=== PATIENT | male | born 1985 | race African-American/Black ===

== ENCOUNTER 2019-04-27 10:26 | Emergency (ER) | payer BC ==
--- NOTE | 2019-04-27 10:49 | EDM.PDOC ---
ED HPI GENERAL MEDICAL PROBLEM - General Chief Complaint: Respiratory Problem Stated Complaint: CHESTPAIN/COUGH Time Seen by Provider: 04/27/19 10:48 Source of Information: Reports: Patient History Limitations: Reports: No Limitations - History of Present Illness INITIAL COMMENTS - FREE TEXT/NARRATIVE: HISTORY AND PHYSICAL: History of present illness: Patient is a 34-year-old male presents to the ED with complaint of cough. Patient states he has had a cough for the past 2 weeks. He states he gets a pain in his chest with coughing a shortness of breath with exertion. He reports history of bronchitis. He denies fevers, chills, nausea, vomiting, abdominal pain. he is taking nyquil and vicks OTC for his symptoms without relief. Review of systems: As per history of present illness and below otherwise all systems reviewed and negative. Past medical history: As per history of present illness and as reviewed below otherwise noncontributory. Surgical history: As per history of present illness and as reviewed below otherwise noncontributory. Social history: No reported history of drug or alcohol abuse. Family history: As per history of present illness and as reviewed below otherwise noncontributory. Physical exam: General: Patient sitting comfortably in no acute distress and nontoxic appearing HEENT: Atraumatic, normocephalic, pupils reactive, negative for conjunctival pallor or scleral icterus, mucous membranes moist, throat clear, neck supple, nontender, trachea midline. No meningeal signs. Lungs: Clear to auscultation, breath sounds equal bilaterally, chest nontender. Heart: S1S2, regular, negative for clicks, rubs, or overt murmur. Abdomen: Soft, nondistended, nontender. Negative for masses or hepatosplenomegaly. Negative for costovertebral tenderness. No rigidity, rebound , guarding. Pelvis: Stable nontender. Genitourinary: Deferred. Rectal: Deferred. Extremities: Atraumatic, negative for cords or calf pain. Neurovascular unremarkable. Neuro: Awake, alert, oriented. Cranial nerves II through XII unremarkable. Cerebellum unremarkable. Motor and sensory unremarkable throughout. Exam nonfocal. Notes: Diagnostics: none Therapeutics: none Prescriptions: Azithromycin Ventolin inhaler Impression: Acute bronchitis Plan: Take medications as instructed Follow-up with primary care provider, call the number provided to schedule appointment Return to ED as needed as discussed Definitive disposition and diagnosis as appropriate pending reevaluation and review of above. chest Pain Score (Numeric/FACES): 3 - Related Data Allergies Allergy/AdvReac Type Severity Reaction Status Date / Time No Known Allergies Allergy Verified 04/27/19 10:42 Home Meds: Home Meds Albuterol [Ventolin HFA] 1 puff INH Q4H #1 inhaler 04/27/19 [Rx] Azithromycin [Zithromax] 250 mg PO ASDIRECTED #1 dosepk 04/27/19 [Rx] Past Medical History - Infectious Disease History Infectious Disease History: Reports: None - Past Surgical History HEENT Surgical History: Reports: Tonsillectomy Male Surgical History: Reports: Circumcision Social & Family History - Family History Family Medical History: Noncontributory - Tobacco Use Smoking Status *Q: Current Every Day Smoker Years of Tobacco use: 20 Packs/Tins Daily: 0.5 - Recreational Drug Use Recreational Drug Use: Yes Drug Use in Last 12 Months: Yes Recreational Drug Type: Reports: Marijuana/Hashish Recreational Drug Use Frequency: Monthly ED ROS GENERAL - Review of Systems Review Of Systems: Comprehensive ROS is negative, except as noted in HPI. ED EXAM, GENERAL - Physical Exam Exam: See Below (see dictation) Course - Vital Signs Last Recorded V/S: Last Vital Signs Temp 98 F 04/27/19 10:40 Pulse 84 04/27/19 10:40 Resp 20 04/27/19 10:40 BP 162/100 H 04/27/19 10:40 Pulse Ox 94 L 04/27/19 10:40 Departure - Departure Time of Disposition: 10:55 Disposition: Home, Self-Care 01 Condition: Good Clinical Impression: Acute bronchitis - Discharge Information Prescriptions: Albuterol [Ventolin HFA] 1 puff INH Q4H #1 inhaler Azithromycin [Zithromax] 250 mg PO ASDIRECTED #1 dosepk Instructions: Acute Bronchitis, Adult, [id number] Referrals: PCP,None [Primary Care Provider] - Forms: ED Department Discharge Additional Instructions: The following information is given to patients seen in the emergency department who are being discharged to home. This information is to outline your options for follow-up care. We provide all patients seen in our emergency department with a follow-up referral. The need for follow-up, as well as the timing and circumstances, are variable depending upon the specifics of your emergency department visit. If you don't have a primary care physician on staff, we will provide you with a referral. We always advise you to contact your personal physician following an emergency department visit to inform them of the circumstance of the visit and for follow-up with them and/or the need for any referrals to a consulting specialist. The emergency department will also refer you to a specialist when appropriate. This referral assures that you have the opportunity for follow-up care with a specialist. All of these measure are taken in an effort to provide you with optimal care, which includes your follow-up. Under all circumstances we always encourage you to contact your private physician who remains a resource for coordinating your care. When calling for follow-up care, please make the office aware that this follow-up is from your recent emergency room visit. If for any reason you are refused follow-up, please contact the [facility] Emergency Department at and asked to speak to the emergency department charge nurse. [facility] [address] [place] [address] [place] [address] Take medications as instructed Follow-up with primary care provider, call the number provided to schedule appointment Return to ED as needed as discussed Sepsis Event Note - Evaluation Sepsis Screening Result: No Definite Risk - Focused Exam Vital Signs: Vital Signs Temp Pulse Resp BP Pulse Ox 04/27/19 10:40 98 F 84 20 162/100 H 94 L Date Exam was Performed: 04/27/19 Time Exam was Performed: 12:29
== END 2019-04-27 11:04 | disposition home or self-care (01) ==
LOC: MW.ED 10:26
DX: J20.9 Acute bronchitis, unspecified (principal); F17.210 Nicotine dependence, cigarettes, uncomplicated
CPT/HCPCS: 99283; 99284

== ENCOUNTER 2019-06-17 09:19 | Emergency (ER) | payer BC, OTHER ==
--- NOTE | 2019-06-17 10:32 | CR ---
Chest: 2 views of the chest were obtained. Comparison: No prior chest imaging is available. Heart size and mediastinum are normal. Lungs are clear with no acute parenchymal change. Bony structures show nothing acute. Impression: 1. Nothing acute is appreciated on 2 view chest x-ray. Diagnostic code #1 Study was dictated in MDT
--- NOTE | 2019-06-17 11:10 | EDM.PDOC ---
ED HPI GENERAL MEDICAL PROBLEM - General Chief Complaint: Respiratory Problem Stated Complaint: COUGHING/SOB Time Seen by Provider: 06/17/19 09:19 - History of Present Illness INITIAL COMMENTS - FREE TEXT/NARRATIVE: HPI 34-year-old obese male with HTN and bronchitis (PRN albuterol) presents for evaluation of ~4 days of cough, a subjective myalgias, and one day of mild shortness breath. No diarrhea. Patient is concerned he has COVID-19. No history of DVT, PE, exogenous estrogen use, hemoptysis, immobilization, surgery, trauma , or calf tenderness or swelling. M/S/F/SocHx notable for: please see HPI; remainder reviewed with patient and in chart. ROS: Negative constitutional, eye, cardiovascular, pulmonary, GI, , MSK, skin , neurologic, psychiatric, endocrine unless noted in the HPI. Exam Gen: Pleasant, non-toxic appearing, resting comfortably. HEENT: NC, AT, PEERL, EOMI. Resp: Clear to auscultation bilaterally, normal work of breathing, no accessory muscle usage. Card: Regular rate and rhythm with no murmurs, rubs, or gallops, extremities warm and well perfused. GI: Non-tender to palpation throughout all quadrants, no focal tenderness at McBurney's point, negative Millan's sign, non-distended, no rebound or guarding. : deferred. Vascular: both calves of equal size and nontender to palpation. MSK: No visible deformities, strength and tone without visually appreciable deficit. Skin: Normal color with no visible lesions. Neuro: alert and oriented 3, no facial asymmetry, vision and hearing WNL. Psych: Mood and affect appropriate. Labs / Imaging: CXR: nothing acute is appreciated on 2 view chest x-ray. influenza A & B negative. COVID-19 pending. MDM Previous chart, nursing note, labs, imaging, and vitals reviewed. A: 34-year-old obese male with HTN and bronchitis (PRN albuterol) presents for evaluation of ~4 days of cough, a subjective myalgias, and one day of mild shortness breath. DDx & Evaluation: patient clinically appears to have a viral upper respiratory tract infection, vital signs on the patient monitor that I observed during my HPI were within normal limits, patient a normal work of breathing, clear chest x -ray, and a stable clinical trajectory that is without concerning features for foreseeable complications. Patient was advised of the tenuous knowledge regarding COVID-19 and the possibility of a worsening clinical trajectory in the coming days. No features suggestive of sepsis pathophysiology at the present time. No risk factors with respect to PE, as such further evaluation is not presently indicated. No features suggestive of cardiac etiology observed on history or exam, as such further investigation is not presently indicated. Impression: cough, shortness of breath. - Related Data Allergies Allergy/AdvReac Type Severity Reaction Status Date / Time No Known Allergies Allergy Verified 06/17/19 09:27 Home Meds: Home Meds . [No Known Home Meds] 06/17/19 [History] Past Medical History HEENT History: Reports: None Cardiovascular History: Reports: High Cholesterol, Hypertension Respiratory History: Reports: None Gastrointestinal History: Reports: None Genitourinary History: Reports: None Musculoskeletal History: Reports: None Neurological History: Reports: None Psychiatric History: Reports: None Endocrine/Metabolic History: Reports: None Hematologic History: Reports: None Immunologic History: Reports: None Oncologic (Cancer) History: Reports: None Dermatologic History: Reports: None - Infectious Disease History Infectious Disease History: Reports: None - Past Surgical History Head Surgeries/Procedures: Reports: None HEENT Surgical History: Reports: Tonsillectomy Cardiovascular Surgical History: Reports: None Respiratory Surgical History: Reports: None GI Surgical History: Reports: None Male Surgical History: Reports: Circumcision Endocrine Surgical History: Reports: None Neurological Surgical History: Reports: None Musculoskeletal Surgical History: Reports: None Oncologic Surgical History: Reports: None Dermatological Surgical History: Reports: None Social & Family History - Family History Family Medical History: Noncontributory - Tobacco Use Smoking Status *Q: Current Every Day Smoker Years of Tobacco use: 11 Packs/Tins Daily: 1 - Caffeine Use Caffeine Use: Reports: None - Recreational Drug Use Recreational Drug Use: Yes Recreational Drug Type: Reports: Marijuana/Hashish Recreational Drug Use Frequency: Rarely ED ROS GENERAL - Review of Systems Review Of Systems: See Below ED EXAM, GENERAL - Physical Exam Exam: See Below Course - Vital Signs Last Recorded V/S: Last Vital Signs Temp 36.4 C 06/17/19 09:34 Pulse 85 06/17/19 09:34 Resp 18 06/17/19 09:34 BP 161/90 H 06/17/19 09:34 Pulse Ox 98 06/17/19 09:34 - Orders/Labs/Meds Orders: Active Orders 24 hr Category Date Time Status Communication Order [RC] STAT Care 06/17/19 11:06 Ordered CORONAVIRUS COVID-19 PCR PHL [MREF] Stat Lab 06/17/19 09:48 Ordered Isolation [COMM] Routine Oth 06/17/19 09:48 Ordered Departure - Departure Time of Disposition: 11:09 Disposition: Home, Self-Care 01 Clinical Impression: Upper respiratory tract infection - Discharge Information Referrals: PCP,Not In Area [Primary Care Provider] - Additional Instructions: You were in seen in the [facility] Emergency Department for evaluation of cough, malaise, and weakness. At the time of your evaluation your terribly suspected have a viral respiratory tract infection. There are many viruses that can cause us including COVID-19. Please read and follow all of the instructions below. Please follow up with your primary care physician as needed. When calling for follow-up care, please make the office aware that this follow-up is from your recent emergency room visit. If for any reason you are refused follow-up, please contact the [facility] Emergency Department at and asked to speak to the emergency department charge nurse. Your care today was limited to identifying and treating emergent medical problems only. Many people have subtle differences in their test results that require follow up with their outpatient physician(s) to correctly determine if this represents a normal variation or concerning abnormality with respect to your specific health. The care given to you today was limited to identifying and treating emergent medical problems - you need to request a copy of all of your medical records from today's visit and follow up with your outpatient physician(s) to review both today's visit and your overall health. If you have any new symptoms or if you are at all concerned about your health please return immediately to the emergency department. Prescriptions: If you are uninsured or have financial difficulties with filling your prescription(s), you may consider using a free pharmacy discount service such as [employer] ([employer]) or [employer] ([employer]). These services allow you to search for a medication on your phone (or computer) and obtain a coupon that usually has a significant discount from the list de la vega at a pharmacy. Your physician as well as [facility] does not have a financial relationship with either of these services. You may also wish to speak with your physician to determine if lower cost prescriptions are possible. Obtaining primary care: 1. [facility] provides pediatrics (children), family medicine (children, adults, and some obstetrical care), and internal medicine (adults). Further specialty care is also available. Same day appointments are available. They may be contacted at [phone] and are open Saturday through Saturday 8 AM to [address] [facility] are located at [facility], [address] [place] [address]. 2. [facility] offers family medicine, internal medicine, women health, and further specialty care. [facility] may be contacted at [phone]. [facility] is located at [address] [facility] [address]. 3. If you have health insurance, please also contact your insurer for a list of accepting providers under your policy, you may contact these providers for further health care. Occupational health: Work related injuries may consider following up with [facility], . Occupational health services are located at [address] [place] [phone] and are open Saturday through Saturday from 7: 30 am to 5:00 pm. Obstetrical and Gynecological Care: [facility], , Saturday through Saturday 8 AM to 5 PM. [address], [place] [address]. Eyecare: If you have an eye injury you should follow up with your legal records manager or with [facility], at [phone] or [phone] , they are located at [address] [place] [address]. Dental Care Jass Rivera DDS. [address] [place], [place]. Ph. [phone] Tin Rivera DDS [place]. [address] Ph[address] [phone] Mitul Saha DDS. 10 03/[address] [place] [address], [place], [place]. Ph. [phone] Ray Trejo DDS. [address] [facility] 4 [place], [place]. Ph. [phone] Devin Forde Doroteo D[facility] PC. [address] [place], [place]. Ph. Thelma Lutz DDS. [address] [facility]. Ph. [phone] [facility]. [address] [place], [place]. Ph. [phone] [facility]. [address] [place] [address], [place]. Ph. [phone] [facility] [address] [place] [address]. Ph. [phone] [facility]. [address] [place] [address] [address] [place]. Ph. [facility]. [address] [place], [place]. Ph. [phone] Viral Syndrome You are believed to have a viral infection of the respiratory tract. These infections may cause chills, fever, cough, headache, body aches, and sore throat. Depending upon the virus, you may have mild to more severe symptoms. There is a possibility that your symptoms may be due to SARS-COV-2 (commonly called coronavirus), the virus that causes COVID-19. COVID-19 is generally a mild to moderate illness, however some people experience a severe or life- threatening infection. Based on your evaluation in the emergency department discharge home with self-monitoring was appropriate at the time of your care. Your discharge instructions below are listed for both COVID-19 as well as for more common viral infections (common cold viruses as well as influenza). COVID-19 COVID-19 is the disease caused by a new type of coronavirus turned SARS-COV-2. There is concern that your symptoms today may be due to SARS-COV-2. Based on your symptoms today confirmatory testing was not indicated, however you should treat your infection as a suspected COVID-19 infection.[Based on your symptoms today, there are pending laboratory studies to evaluate whether you have SARS- COV-19. The study should take several days. It is important to note that these tests are not perfect. That means some people with COVID-19 will falsely test negative, and others without COVID-19 may test positive. While these false results are believe to be a minority of the tests, it is essential that you be aware that you might have COVID-19 despite negative testing. Stay home except to get medical care: People who are mildly ill with COVID-19 are able to recover at home. Do not leave, except to get medical care. Do not visit public areas. Stay in touch with your doctor. Call before you get medical care. Be sure to get care if you feel worse or you think it is an emergency. Avoid public transportation: Avoid using public transportation, ride-sharing , or taxis. Separate yourself from other people in your home, this is known as home isolation Stay away from others as much as possible, you should stay in a specific sick room and away from other people in your home. Use a separate bathroom, if available. You should restrict contact with pets and other animals, just like you would around other people. Although there have not been reports of pets or other animals becoming sick with COVID-19, it is still recommended that people with the virus limit contact with animals until more information is known. When possible, have another member of your household care for your animals while you are sick with COVID-19. If you must care for your pet or be around animals while you are sick, wash your hands before and after you interact with them. See COVID-19 and Animals for more information. If you have a medical appointment, call your doctors office or emergency department, and tell them you have or may have COVID-19. This will help the office protect themselves and other patients. If you are sick you should wear a facemask when you are around other people and before you enter a healthcare providers office. If you are caring for others: If the person who is sick is not able to wear a facemask (for example, because it causes trouble breathing), then people who live in the home should stay in a different room. When caregivers enter the room of the sick person, they should wear a facemask. Visitors, other than caregivers, are not recommended. Cover your mouth and nose with a tissue when you cough or sneeze. Throw used tissues in a lined trash can. Immediately wash your hands with soap and water for at least 20 seconds. If soap and water are not available, clean your hands with an alcohol-based hand thermal cutter helper that contains at least 60% alcohol. Wash your hands often with soap and water for at least 20 seconds. This is especially important after blowing your nose, coughing, or sneezing; going to the bathroom; and before eating or preparing food. If soap and water are not available, use an alcohol-based hand thermal cutter helper with at least 60% alcohol, covering all surfaces of your hands and rubbing them together until they feel dry. Do not share dishes, drinking glasses, cups, eating utensils, towels, or bedding with other people in your home. After using these items, wash them thoroughly with soap and water or put in the cloth presser. Clean high-touch surfaces in your isolation area (sick room and bathroom) every day; let a caregiver clean and disinfect high-touch surfaces in other areas of the home. Routinely clean high-touch surfaces in your sick room and bathroom. Let someone else clean and disinfect surfaces in common areas, but not your bedroom and bathroom. If a caregiver or other person needs to clean and disinfect a sick persons bedroom or bathroom, they should do so on an as-needed basis. The caregiver/ other person should wear a mask and wait as long as possible after the sick person has used the bathroom. Clean and disinfect areas that may have blood, stool, or body fluids on them. Household air support control officer and disinfectants: Clean the area or item with soap and water or another detergent if it is dirty. Then, use a household disinfectant. Be sure to follow the instructions on the label to ensure safe and effective use of the product. Many products recommend keeping the surface wet for several minutes to ensure germs are killed. Many also recommend precautions such as wearing gloves and making sure you have good ventilation during use of the product. Monitor your symptoms Seek medical attention, but call first: seek medical care right away if your illness is worsening (for example, if you have difficulty breathing). Before going to the doctors office or emergency room, call ahead and tell them your symptoms. They will tell you what to do. If possible, put on a facemask before you enter the building. If you cant put on a facemask, try to keep a safe distance from other people (at least 6 feet away). This will help protect the people in the office or waiting room. Follow care instructions from your healthcare provider and local health department: Your local health authorities will give instructions on checking your symptoms and reporting information. If you develop emergency warning signs for COVID-19 get medical attention immediately. Emergency warning signs include*: o Difficulty breathing or shortness of breath o Persistent pain or pressure in the chest o New confusion or inability to arouse o Bluish lips or face o *This list is not all inclusive. Please consult your medical provider for any other symptoms that are severe or concerning. Call 911 if you have a medical emergency: If you have a medical emergency and need to call 911, notify the black top machine operator that you have or think you might have , COVID-19. If possible, put on a facemask before medical help arrives. People with COVID-19 who have stayed home (home isolated) can stop home isolation under the following conditions. If you will not have a test to determine if you are still contagious, you can leave home after these three things have happened: You have had no fever for at least 72 hours (that is three full days of no fever without the use medicine that reduces fevers) AND other symptoms have improved (for example, when your cough or shortness of breath have improved) AND at least 7 days have passed since your symptoms first appeared If you will be tested to determine if you are still contagious, you can leave home after these three things have happened: You no longer have a fever (without the use medicine that reduces fevers) AND other symptoms have improved (for example, when your cough or shortness of breath have improved) AND you received two negative tests in a row, 24 hours apart. Your doctor will follow CDC guidelines. Want more information on COVID-19? Please visit the following websites. Center for Disease Control and Prevention. https://www.cdc.gov/coronavirus/2019 -ncov/index.html [employer]. https://www.acep.org/by.../infectious -diseases/coronavirus/ Viral infections (not COVID-19) In typical viral infections, the worst symptoms typically last a 2-5 days. Cough and fatigue may continue for as long as 7 to 10 days. Viral respiratory infections are highly contagious. Symptoms will not be reduced or improved by taking an antibiotic. Antibiotics are medications that kill bacteria, not viruses. Rarely these infections can lead to an infection of the sinuses, lungs , or middle ear. However antibiotics at this point in your illness antibiotics will not help prevent these uncommon complications. Home Care Instructions: * Care for viral infections will not shorten your illness but can help reduce your symptoms. * Please stay well hydrated and attempt to get plenty of sleep. * You may take both ibuprofen and acetaminophen as directed on the bottle for relief of fever, chills, and muscle aches. * If you have a severe cough you may take an [id number] cough medication containing dextromethorphan. * Continue to cover your cough and wash your hands often. * Read the package instructions and warnings on any medication that you are taking. Return to the Emergency Department if you have: * Fast breathing, trouble breathing, or shortness of breath * Bluish or hunter skin color * Not drinking enough fluids * Severe or persistent vomiting * Not waking up or not interacting * Pain or pressure in the chest or abdomen * Sudden dizziness * Confusion * Or if you are otherwise concerned about your health Please follow-up your primary care provider or return to the emergency department if: * Your symptoms fail to improve over the next 4-5 days. * Your symptoms improve but then significantly worsen - this may be a sign of a bacterial infection which will need to be treated. You are otherwise concerned about your health. You make take over the counter Acetaminophen (Tylenol) and Ibuprofen (Motrin or Aleve) as directed below for relief of pain. Take 600 mg of ibuprofen (three 200 mg tablets) with a glass of water every 6-8 hours as needed for pain or fever. Do not take if you have ulcers, GI bleeding, are , or are allergic to ibuprofen. Take 1,000 mg of acetaminophen (two 500 mg tablets) with a glass of water every 6-8 hours as needed for pain. Do not take if you are allergic to acetaminophen. If you have liver disease, please reduce your dose to a maximum of 2,000 mg per day. You can take these medications at the same time or on separate schedules. Do not take for more than 10 days. Do not take with alcohol or other acetaminophen containing medications. This medication may cause a mildly upset stomach, if so take it with a small snack. Stop taking it if you have persistent abdominal pain, heartburn, or any stomach pain. Do not take this medication if you have known ulcers. Please read the warnings at the end of this document regarding these medications. IBUPROFEN WARNING: This drug may infrequently cause serious (rarely fatal) bleeding from the stomach or intestines. Also, related drugs rarely have caused blood clots to form, resulting in heart attacks and strokes. This medication might also rarely cause similar problems. Talk to your doctor or pharmacist about the benefits and risks of treatment, as well as other possible medication choices. If you notice any of the following rare but very serious side effects, stop taking ibuprofen and seek immediate medical attention: black stools, persistent stomach/abdominal pain, vomit that looks like coffee grounds, chest pain, weakness on one side of the body, sudden vision changes, slurred speech. IBUPROFEN SIDE EFFECTS: Upset stomach, nausea, vomiting, heartburn, headache, diarrhea, constipation, drowsiness, and dizziness may occur. If any of these effects persist or worsen, notify your doctor or pharmacist promptly. If your doctor has directed you to use this medication, remember that he or she has judged that the benefit to you is greater than the risk of side effects. Many people using this medication do not have serious side effects. Tell your doctor immediately if any of these serious side effects occur: stomach pain, swelling of the hands or feet, sudden or unexplained weight gain, ringing in the ears ( tinnitus). Tell your doctor immediately if any of these unlikely but serious side effects occur: vision changes, rapid or pounding heartbeat, easy bruising or bleeding, difficult/painful swallowing. Tell your doctor immediately if any of these highly unlikely but very serious side effects occur: change in amount of urine, severe headache, very stiff neck, mental/mood changes, persistent sore throat or fever. This drug may rarely cause serious (possibly fatal) liver disease. If you notice any of the following highly unlikely but very serious side effects, stop taking ibuprofen and consult your doctor or pharmacist immediately: yellowing eyes and skin, dark urine, unusual/extreme tiredness. An allergic reaction to this drug is unlikely, but seek immediate medical attention if it occurs. Symptoms of an allergic reaction include: rash, itching/ swelling (especially of the face/tongue/throat), severe dizziness, trouble breathing. This is not a complete list of possible side effects. ACETAMINOPHEN SIDE EFFECTS: This drug usually has no side effects. If you do not have liver problems, the maximum dose of acetaminophen for adults is 4 grams per day (4000 milligrams). Taking more than the maximum daily amount may cause serious (possibly fatal) liver damage. Get medical help right away if you have any of the following symptoms of liver damage: persistent nausea/vomiting, extreme tiredness, stomach/abdominal pain, yellowing eyes/skin, dark urine. If you have liver problems, consult your doctor or pharmacist for a safe dosage of this medication. A very serious allergic reaction to this drug is rare. However , get medical help right away if you notice any symptoms of a serious allergic reaction, including: rash, itching/swelling (especially of the face/tongue/ throat), severe dizziness, trouble breathing. This is not a complete list of possible side effects. If you notice other effects not listed above, contact your doctor or pharmacist. DRUG INTERACTIONS: Your healthcare professionals (e.g., doctor or pharmacist) may already be aware of any possible drug interactions and may be monitoring you for it. Do not start, stop or change the dosage of any medicine before checking with them first. This drug should not be used with the following medications because very serious interactions may occur: cidofovir, ketorolac. If you are currently using any of these medications listed above, tell your doctor or pharmacist before starting ibuprofen. Before using this medication, tell your doctor or pharmacist of all prescription and nonprescription/herbal products you may use, especially of: anti-platelet drugs (e.g., cilostazol, clopidogrel), oral bisphosphonates (e.g., alendronate), other medications for arthritis (e.g., aspirin, methotrexate), "blood thinners" (e.g., enoxaparin, heparin, warfarin), corticosteroids (e.g., prednisone), cyclosporine, desmopressin, high blood pressure drugs (including RAMANDEEP inhibitors such as captopril, angiotensin II receptor antagonists such as losartan, and beta- blockers such as metoprolol), lithium, pemetrexed, "water pills" (diuretics such as furosemide, hydrochlorothiazide, triamterene). Check all prescription and nonprescription medicine labels carefully for other pain/fever drugs ( NSAIDs such as aspirin, celecoxib, naproxen). These drugs are similar to ibuprofen, so taking one of these drugs while also taking ibuprofen may increase your risk of side effects. Consult your doctor or pharmacist for more details. However, if your doctor has prescribed low doses of aspirin to prevent heart attack or stroke (usually at dosages of 81-325 milligrams a day), you should continue to take the aspirin. Daily use of ibuprofen may decrease aspirin 's ability to prevent heart attack/stroke. Talk to your doctor about using a different medication (e.g., acetaminophen) to treat pain/fever. If you must take ibuprofen, talk to your doctor about possibly taking immediate-release aspirin (not enteric-coated) while also taking the ibuprofen dose apart from your aspirin dose. Do not increase your daily dose of aspirin or change the way you take aspirin/other medications without your doctor's approval. This document does not contain all possible interactions. Therefore, before using this product, tell your doctor or pharmacist of all the products you use. Keep a list of all your medications with you, and share the list with your doctor and pharmacist. Sepsis Event Note - Evaluation Sepsis Screening Result: No Definite Risk - Focused Exam Vital Signs: Vital Signs Temp Pulse Resp BP Pulse Ox 06/17/19 09:34 36.4 C 85 18 161/90 H 98 Date Exam was Performed: 06/17/19 Time Exam was Performed: 11:09 - My Orders Last 24 Hours: My Active Orders 06/17/19 09:48 CORONAVIRUS COVID-19 PCR PHL [MREF] Stat Isolation [COMM] Routine 06/17/19 11:06 Communication Order [RC] STAT - Assessment/Plan Last 24 Hours: My Active Orders 06/17/19 09:48 CORONAVIRUS COVID-19 PCR PHL [MREF] Stat Isolation [COMM] Routine 06/17/19 11:06 Communication Order [RC] STAT
== END 2019-06-17 11:28 | disposition home or self-care (01) ==
LOC: MW.ED 09:19
DX: J06.9 Acute upper respiratory infection, unspecified (principal); I10 Essential (primary) hypertension; F17.210 Nicotine dependence, cigarettes, uncomplicated
CPT/HCPCS: 71046; 71046-26; 87804; 99283; 99283-25; U0002

== ENCOUNTER 2019-06-20 23:08 | Emergency (ER) | payer BC, OTHER ==
--- NOTE | 2019-06-20 23:29 | EDM.PDOC ---
ED HPI GENERAL MEDICAL PROBLEM - General Chief Complaint: General Stated Complaint: SWOLLEN LIPS Time Seen by Provider: 06/20/19 23:20 Source of Information: Reports: Patient - History of Present Illness INITIAL COMMENTS - FREE TEXT/NARRATIVE: The patient is a 34-year-old male with history of hypertension who takes lisinopril who presents to the ER for bilateral swollen lips. He states that this actually started early this morning almost 8 hours ago. He started feeling some swelling and tingling in his left lower lip. It then progressed to involve his entire lip and as well as his upper lip. He tried putting ice on it but it never went down. No tongue swelling, no throat swelling, no difficulty breathing, no other acute complaints. no pain Pain Score (Numeric/FACES): 0 - Related Data Allergies Allergy/AdvReac Type Severity Reaction Status Date / Time No Known Allergies Allergy Verified 06/20/19 23:14 Home Meds: Home Meds Albuterol Sulfate [Proair Hfa] 8.5 gm IH 06/20/19 [History] Lisinopril [Zestril] 0 mg PO 06/20/19 [History] Nasal [place] 06/20/19 [History] Past Medical History HEENT History: Reports: None Cardiovascular History: Reports: High Cholesterol, Hypertension Respiratory History: Reports: None Gastrointestinal History: Reports: None Genitourinary History: Reports: None Musculoskeletal History: Reports: None Neurological History: Reports: None Psychiatric History: Reports: None Endocrine/Metabolic History: Reports: None Hematologic History: Reports: None Immunologic History: Reports: None Oncologic (Cancer) History: Reports: None Dermatologic History: Reports: None - Infectious Disease History Infectious Disease History: Reports: None - Past Surgical History Head Surgeries/Procedures: Reports: None HEENT Surgical History: Reports: Tonsillectomy Cardiovascular Surgical History: Reports: None Respiratory Surgical History: Reports: None GI Surgical History: Reports: None Male Surgical History: Reports: Circumcision Endocrine Surgical History: Reports: None Neurological Surgical History: Reports: None Musculoskeletal Surgical History: Reports: None Oncologic Surgical History: Reports: None Dermatological Surgical History: Reports: None Social & Family History - Family History Family Medical History: Noncontributory - Tobacco Use Smoking Status *Q: Never Smoker - Caffeine Use Caffeine Use: Reports: None - Recreational Drug Use Recreational Drug Use: No ED ROS GENERAL - Review of Systems Review Of Systems: See Below (Bilateral lip swelling, negative shortness of breath, negative for difficulty swallowing, all other Positives and pertinent negatives as per HPI. All other pertinent systems were reviewed and are negative ) ED EXAM, GENERAL - Physical Exam Exam: See Below Free Text/Narrative:: Constitutional: No acute distress, Non-toxic appearance. HEENT: Normocephalic, Atraumatic, PERRL, EOMI, bilateral angioedema of the lips , tongue is unremarkable, oropharynx is widely patent, patient is handling secretions without difficulty, uvula is midline and normal Neck: Normal range of motion, No stridor, trachea midline Respiratory: No respiratory distress, No tachypnea, no dyspneic speech Cardiovascular: Deferred Gastrointestinal: Deferred Genital / Urinary: Deferred Musculoskeletal: All four extremities present and atraumatic Back: FROM Integument: Warm, Dry, Color is ethnicity appropriate, No rash. Neuro: Alert, Awake, No focal deficits noted Psych: Affect, Judgement, mood normal Course - Vital Signs Text/Narrative:: The patient has obvious angioedema of the lips. This in itself is not an emergency, and does not obstruct airways. Furthermore, given that the patient has had his symptoms for about 8 hours, without any concern for tongue swelling , throat swelling, etc. the patient can be safely discharged home. He has been instructed never to take anymore RAMANDEEP inhibitor's and he states his understanding. Last Recorded V/S: Last Vital Signs Temp 35.7 C L 06/20/19 23:16 Pulse 103 H 06/20/19 23:16 Resp 18 06/20/19 23:16 BP 185/102 H 06/20/19 23:16 Pulse Ox 99 06/20/19 23:16 Departure - Departure Time of Disposition: 23:28 Disposition: Home, Self-Care 01 Condition: Good Clinical Impression: Angioedema of lips - Discharge Information Instructions: Angioedema, [id number] Additional Instructions: NO MORE LISINIPRIL or any medication in its class ( RAMANDEEP inhibitors ) Sepsis Event Note - Evaluation Sepsis Screening Result: No Definite Risk - Focused Exam Vital Signs: Vital Signs Temp Pulse Resp BP Pulse Ox 06/20/19 23:16 35.7 C L 103 H 18 185/102 H 99 Date Exam was Performed: 06/20/19 Time Exam was Performed: 23:25
== END 2019-06-20 23:41 | disposition home or self-care (01) ==
LOC: MW.ED 23:08
DX: T78.3XXA Angioneurotic edema, initial encounter (principal); I10 Essential (primary) hypertension; Z79.899 Other long term (current) drug therapy
CPT/HCPCS: 99282; 99283